=== PATIENT | female | born 1945 | race Caucasian/White ===

== ENCOUNTER → 2021-03-14 09:53 | Outpatient (BNVA) | payer MEDICARE, SELFPAY | PROVIDERS: PCP Internal Medicine; Visit Provider Hospitalist | DX: R06.00 Dyspnea, unspecified (principal); R42 Dizziness and giddiness; R91.8 Other nonspecific abnormal finding of lung field | CPT/HCPCS: 99212 ==

== ENCOUNTER 2021-03-21 07:31 | Outpatient (REF) | payer MEDICARE, SELFPAY ==
--- NOTE | 2021-03-21 17:16 | PFT_ITS ---
INDICATION: COPD. SPIROMETRY: The FEV1 to FVC 78% with an FEV1 of 2.03 L which is 101% predicted and FVC of 2.59 L, which is 97% predicted. No significant response to bronchodilators noted. Maximum voluntary ventilation 105% predicted. LUNG VOLUMES: Total lung capacity 107% predicted with residual volume of 114% predicted. DIFFUSION CAPACITY: DLCO 69% predicted. COMPARISONS: None available. INTERPRETATION: No obstructive nor restrictive ventilatory defects identified. No significant response to bronchodilators noted. Normal maximum voluntary ventilation. Lung volumes are within normal limits and the patient has an isolated diffusion impairment. Clinical correlation warranted. Eddy Burrell MD MR/MODL / [id number]
== END 2021-03-21 07:32 | disposition home or self-care (01) ==
LOC: HO.RESP 07:31
PROVIDERS: PCP Internal Medicine; Visit Provider Hospitalist
DX: R06.00 Dyspnea, unspecified (principal); R42 Dizziness and giddiness
CPT/HCPCS: 94060; 94727; 94729

== ENCOUNTER → 2021-05-02 09:43 | Outpatient (BNVA) | payer MEDICARE, SELFPAY | PROVIDERS: PCP Internal Medicine; Visit Provider Hospitalist | DX: R91.8 Other nonspecific abnormal finding of lung field (principal); R06.00 Dyspnea, unspecified | CPT/HCPCS: 99212 ==

== ENCOUNTER → 2021-10-06 10:43 | Outpatient (BNVA) | payer MEDICARE, SELFPAY | PROVIDERS: PCP Internal Medicine; Visit Provider Hospitalist | DX: R91.8 Other nonspecific abnormal finding of lung field (principal); R06.00 Dyspnea, unspecified; K21.00 Gastro-esophageal reflux disease with esophagitis, without bleeding | CPT/HCPCS: 99212 ==

== ENCOUNTER → 2022-10-06 10:50 | Outpatient (BNVA) | payer MEDICARE, SELFPAY | PROVIDERS: PCP Internal Medicine; Visit Provider Hospitalist | DX: R91.8 Other nonspecific abnormal finding of lung field (principal); R06.00 Dyspnea, unspecified; K21.00 Gastro-esophageal reflux disease with esophagitis, without bleeding | CPT/HCPCS: 99212 ==

== ENCOUNTER 2023-10-07 09:22 | Outpatient (AMB) | payer MEDICARE, SELFPAY ==
[2023-10-07 09:38] VITALS: PULSE 75; O2SAT 100; BMI 17.7
--- NOTE | 2023-10-07 09:38 | A.OFFVIS_ITS ---
Vital Signs 10/07/23 09:38 Height 5 ft 3 in Weight 100 lb BMI 17.7 Pulse 75 Pulse Source Pulse Oximeter Pulse Oximetry (%) 100 Oxygen Delivery Method Room Air Intake Visit Reasons: dyspnea Director Translation Required: No Allergies naproxen [Aleve] Allergy (Severe, Verified 10/07/23 09:39) Skin Stephens Erythromycin Allergy (Severe, Uncoded 10/07/23 09:39) Stomach Upset Sulfa Drugs Allergy (Severe, Uncoded 10/07/23 09:39) Skin Stephens HPI Comments Details: The patient is a 78 year pulmonary known history of pulmonary nodules in addition to episodes of dyspnea on exertion. The last CT scan of the chest demonstrated interval worsening of the pulmonary nodules in the left lower lobe. She had been sick at the time. So therefore the suspicion was it was related to her recent sickness. She did follow up in [place] for 2nd opinion. The recommendation was to repeat the CT scan mid March and she is going to follow up with them early April. She denies any new complaints. Denies any significant coughing. Denies any weight loss or night sweats. She has been otherwise well. 03/14/2021 the patient is here for a pulmonary follow-up visit. Apparently the patient had been in her usual state health until the last couple weeks which she has found to have more symptoms of dyspnea and dizziness. Apparently the 1st time it occurred she was done in [place] while she was walking she all of a sudden felt some lightheadedness in addition to dyspnea. She was walking by herself. Her symptoms were significant enough that she had to seek help and she got arise from a stranger to home. her symptoms were fleeting. She denies any chest tightness or wheezing or coughing when that occurred. The patient did not use any respiratory therapy. Subsequently after that she has gone walking with has been and she has had similar episodes which she has felt that sensation of dyspnea and lightheadedness. she has noticed increased palpitations and extra beats. She does have a follow-up with cardiology. In the meantime the patient has underlying pulmonary nodules and will need follow-up. In addition to that she will need pulmonary function studies. while in the office we did go for a walking oximetry in the patient was able to maintain a pulse ox in the high 90s throughout the ambulation. Her heart rate was in the low 100s. She did have increased ectopy. On my examination she also has an increase pronounced S2. will be very important for her to be seen by Cardiology specially with a history of SVT. 05/02/2021 the patient is here for pulmonary follow-up visit. Overall the patient has been doing better from a respiratory status. She is undergoing additional studies from a cardiac standpoint. We did review her recent CT scan of the chest done at [facility]. I did review the images with her. It appears that the tree in budding has subsided to some degree. However, more pronounced nodular densities are appreciated in the left lower lobe. One of the nodules increase to a cm in size. Still, the picture appears to be more of a smoldering inflammatory process with a history tree-in-bud. She did undergo bronchoscopy previously to assess for smoldering infection. This was done at [facility]. I will request the records and the microbiology from the procedure. At this point the patient usually goes down to [place] for about 3 months and she is scheduled to travel to [place] soon. She was already advised by her production material handler that she does have a production material handler in [place] and also primary care doctor. I did explain to the patient that based on the fact that the nodule has increased in size additional interventions may be required. We did talk about a PET scan. Explained that the PET scan will measure metabolic activity. If indeed this is a infectious inflammatory or smoldering malignant process indeed it will have some degree of FDG activity. We did talk about also considering a biopsy of the prominent nodule which is still 1 cm in size. She does have the Acapella valve that she has not been using regularly. I did encourage her to start using it and that will plan to repeat the CT scan in 3 months time when she gets back f [facility]. In the meantime she will reach out to her doctors in [place]. 10/06/2021 the patient is here for a pulmonary follow-up visit. Overall the patient has been doing well from a respiratory status. Unfortunately she did have a fall and she fractured her pubic ramus. She is having pain but she can walk. She did not require any surgical intervention for this. She also has evidence of osteoporosis and does take medication for that. She did recently have a CT scan of the chest done at [facility] which I reviewed with her and her . It appears to the treating budding the nodular densities primarily in the left lower lobe are pretty stable. She also has some bronchiectatic changes. Appears that the 1 cm nodular densities no longer apparent which is reassuring. What is significant is that she has a dilated esophagus with fluid filled. The patient does have significant reflux symptoms. We did talk about her diet and she is consuming a lot of foods that are contributing to her reflux disease. Therefore she is going to stop drinking is novel in addition to [place] cut down on to september doze in stop eating citrus. She is going to continue with small meals and avoid any food 3 hours before bedtime. She already has a wedge pillow that she uses at nighttime. She was recently placed on omeprazole although she is concerned because her significant osteoporosis. I did recommend that she talk to her primary care doctor GI doctor regarding placing her on Pepcid to try to reduce the PPI. At this point will hold off on any additional imaging studies. The recommendation from [place] was no further CT scans unless she is symptomatic. Will have her come back in a year's time and reassess her symptoms and decide if any additional imaging as warranted. 10/06/2022 the patient is here for a pulmonary follow-up visit. The patient has been doing very well in the last year. She had 1 bout of pneumonia back in the summer of 2021. Subsequently after that she had a CT scan on February 2022 demonstrating no acute disease. She does have some pulmonary nodules that appear to be stable and she has the larger nodule that result. All these are reassuring. The patient is not using any respiratory inhalers at this time. She is continuing with the reflux diet she does take a PPI. Otherwise patient is doing well. Will plan to have her return in a year's time and to follow-up with a repeat CT scan to further follow her pulmonary nodules. 10/07/2023 the patient is here for pulmonary follow-up visit. She has had a very eventful several months. Back in April 2023 she developed severe abdominal discomfort. She was taken to [facility] where she was ultimately diagnosed with ischemic bowel. She had significant amount of bowel resection and now has a colostomy. She was then sent to rehab when she started developing again abdominal discomfort developing likely an obstruction due to her adhesions. She underwent a 2nd surgery for the lysis of adhesions. She now is recovering. She had significant weight loss after her surgeries. She had several difficult months. But now she is gaining strength. She is walking about 3 miles a day. She is slowly gaining weight. Respiratory chapman the patient is doing well. She is monitoring closely for any aspiration events. The patient did have a repeat CT scan of the chest which I personally reviewed along with the patient. Seems like her bronchiolitis treating budding is worse in the left lobe area primarily superior segment. Suspicious for aspiration. Although non tuberculosis mycobacterial disease also in differential. In addition to that now she has a nodule 5 mm that is new in the left upper lobe area which does not quite look like the same process. Therefore will have to continue to monitor closely. She is going to be talking to her surgeon. I do believe if we can start her on a small dose of azithromycin hopefully she can tolerated as she has had adverse symptoms of abdominal discomfort in the past. I do believe that the azithromycin will help treat the bronchiolitis and hopefully as a promotility agent. Although will start with a small dose if is okay by her surgeon in order to treat the underlying respiratory issue. Indeed she understands if she develops any abdominal discomfort she can always stop the medication. She will be following up with her surgeon soon they can also discuss to see if they are agreeable and which point she can start the medicine then get an EKG while on the medicine. [facility] Medical History (Updated 10/07/23 @ 12:54 by Eddy Burrell MD) GERD (gastroesophageal reflux disease) Pulmonary nodules Dyspnea Dizziness Social History (Updated 03/14/21 @ 10:23 by RASHAD Bacon) Patient Tobacco Use Status: Never used Tobacco Review of Systems Const Denies night sweats and Reports weight loss ENT Denies change in voice, Denies lip swelling, Denies mouth pain, Reports nasal congestion, Reports nasal discharge and Denies tongue swelling Card Denies chest pain, Denies lightheadedness and Reports dyspnea on exertion Resp Denies cough and Reports dyspnea on exertion GI Reports as per HPI and Reports abdominal pain Musc Reports as per HPI and Reports myalgias Neuro Denies Neuro-related abnormal movements Psych Denies no additional complaints Chris/Lymph Denies easy bleeding and Denies lymphadenopathy Aller/Immun Denies lip swelling and Denies tongue swelling Physical Exam Vital Signs: Last Vital Signs Pulse 75 10/07/23 09:38 Pulse Ox 100 10/07/23 09:38 Oxygen Delivery Method Room Air 10/07/23 09:38 BMI result Body Mass Index 17.7 Const General: alert Neck Neck: Yes normal visual inspection, Yes full ROM and Yes no lymphadenopathy Chest Chest palpation & inspection: normal inspection of the chest Resp Auscultation: diminished lung sounds Cardio Rate: regular rate Rhythm: regular rhythm Heart sounds: S1 normal heart sound present and Abnormal heart opening sounds loud S2 GI Palpation (GI): Soft to palpation and nontender Auscultation: normal bowel sounds Skin General skin exam: rashes and/or lesions noted Results Reviewed Results Reviewed: [facility] chest at [facility] 08/2023 personally reviewed Assessment & Plan Assessment & Plan (1) Dyspnea: Code(s): R06.00 - Dyspnea, unspecified Category: Medical Qualifiers: Dyspnea type: dyspnea on exertion Qualified Code(s): R06.09 - Other forms of dyspnea (2) Pulmonary nodules: Code(s): R91.8 - Other nonspecific abnormal finding of lung field Category: Medical (3) GERD (gastroesophageal reflux disease): Code(s): K21.9 - Gastro-esophageal reflux disease without esophagitis Category: Medical Qualifiers: Esophagitis bleeding: without hemorrhage Esophagitis presence: with esophagitis Qualified Code(s): K21.00 - Gastro-esophageal reflux disease with esophagitis, without bleeding Plan CT chest in 6 months Continue reflux diet needs to sleep elevated start Azithromycin 125mg MWF->will increase 250mg if she can tolerate it. The Azithromycin will be to treat her bronchiolitis and also will help as a promotility agent. She will F/U with her surgeon to make sure it is ok with her surgical issues. EKG once on the Macrolide follow-up in 6 months f/u CT chest Orders: Orders ECG 12 lead EKG Today J44.9 - Chronic obstructive pulmonary disease, unspecified Medications: New azithromycin Take 1 tablet on Wednesday/Wednesday/Wednesday 125 mg (1/2 x 250 mg) PO 3XW 6 tabs 6RF 28 days K21.9 - Gastro-esophageal reflux disease without esophagitis Coding Level of Care Code Est Pt Level 4 (39234) Diagnoses Dyspnea on exertion R06.09 Dyspnea type: dyspnea on exertion Pulmonary nodules R91.8 Gastroesophageal reflux disease with esophagitis without hemorrhage K21.00 Esophagitis bleeding: without hemorrhage Esophagitis presence: with esophagitis Time Spent (min) 18
== END 2023-10-07 10:07 | disposition home or self-care (01) ==
PROVIDERS: PCP Internal Medicine; Visit Provider Hospitalist
DX: R06.09 Other forms of dyspnea (principal); R91.8 Other nonspecific abnormal finding of lung field; K21.00 Gastro-esophageal reflux disease with esophagitis, without bleeding
CPT/HCPCS: 99214

== ENCOUNTER → 2023-10-07 09:22 | Outpatient (BNVA) | payer MEDICARE, SELFPAY | PROVIDERS: PCP Internal Medicine; Visit Provider Hospitalist | DX: R06.09 Other forms of dyspnea (principal); R91.8 Other nonspecific abnormal finding of lung field; K21.00 Gastro-esophageal reflux disease with esophagitis, without bleeding | CPT/HCPCS: 99212 ==

== ENCOUNTER 2024-02-14 09:44 | Outpatient (REF) | payer MEDICARE, SELFPAY ==
--- NOTE | ~2024-02-14 | XR_ITS ---
EXAMINATION: XR CHEST CLINICAL INFORMATION: Pneumonia. COMPARISON: Most recent chest CT dated 03/13/2022. TECHNIQUE: 2 views of the chest were obtained. FINDINGS: No focal airspace consolidation. No pleural effusion or pneumothorax. Stable cardiomediastinal silhouette. Bilateral axillary surgical clips are noted. XR/XR chest 2V IMPRESSION: No acute cardiopulmonary findings. Electronically signed by: Teodoro Marie MD 02/14/2024 11:54 AM EDT
== END 2024-02-14 09:45 | disposition home or self-care (01) ==
LOC: HO.XRAY 09:44
PROVIDERS: PCP Internal Medicine; Visit Provider Hospitalist
DX: Z01.811 Encounter for preprocedural respiratory examination (principal); J18.9 Pneumonia, unspecified organism; R91.8 Other nonspecific abnormal finding of lung field
CPT/HCPCS: 71046; 99212

== ENCOUNTER 2024-02-14 09:44 | Outpatient (AMB) | payer MEDICARE, SELFPAY ==
[2024-02-14 09:52] VITALS: BP 134/70; PULSE 71; O2SAT 99; BMI 18.0
--- NOTE | 2024-02-14 09:52 | MHC.OFFVIS ---
Vital Signs 02/14/24 09:52 Height 5 ft 3 in Weight 101 lb 6.602 oz BMI 18.0 BP 134/70 Blood Pressure Location Rt brachial Position Sitting Pulse 71 Pulse Source Pulse Oximeter Pulse Oximetry (%) 99 Oxygen Delivery Method Room Air Intake Visit Reasons: follow up pneumonia Pediatrician Required: No Allergies naproxen [Aleve] Allergy (Severe, Verified 02/14/24 09:55) Skin Stephens Erythromycin Allergy (Severe, Uncoded 02/14/24 09:55) Stomach Upset Sulfa Drugs Allergy (Severe, Uncoded 02/14/24 09:55) Skin Stephens HPI Comments Details: The patient is a 78 year pulmonary known history of pulmonary nodules in addition to episodes of dyspnea on exertion. The last CT scan of the chest demonstrated interval worsening of the pulmonary nodules in the left lower lobe. She had been sick at the time. So therefore the suspicion was it was related to her recent sickness. She did follow up in [place] for 2nd opinion. The recommendation was to repeat the CT scan mid March and she is going to follow up with them early April. She denies any new complaints. Denies any significant coughing. Denies any weight loss or night sweats. She has been otherwise well. 03/14/2021 the patient is here for a pulmonary follow-up visit. Apparently the patient had been in her usual state health until the last couple weeks which she has found to have more symptoms of dyspnea and dizziness. Apparently the 1st time it occurred she was done in [place] while she was walking she all of a sudden felt some lightheadedness in addition to dyspnea. She was walking by herself. Her symptoms were significant enough that she had to seek help and she got arise from a stranger to home. her symptoms were fleeting. She denies any chest tightness or wheezing or coughing when that occurred. The patient did not use any respiratory therapy. Subsequently after that she has gone walking with has been and she has had similar episodes which she has felt that sensation of dyspnea and lightheadedness. she has noticed increased palpitations and extra beats. She does have a follow-up with cardiology. In the meantime the patient has underlying pulmonary nodules and will need follow-up. In addition to that she will need pulmonary function studies. while in the office we did go for a walking oximetry in the patient was able to maintain a pulse ox in the high 90s throughout the ambulation. Her heart rate was in the low 100s. She did have increased ectopy. On my examination she also has an increase pronounced S2. will be very important for her to be seen by Cardiology specially with a history of SVT. 05/02/2021 the patient is here for pulmonary follow-up visit. Overall the patient has been doing better from a respiratory status. She is undergoing additional studies from a cardiac standpoint. We did review her recent CT scan of the chest done at [facility]. I did review the images with her. It appears that the tree in budding has subsided to some degree. However, more pronounced nodular densities are appreciated in the left lower lobe. One of the nodules increase to a cm in size. Still, the picture appears to be more of a smoldering inflammatory process with a history tree-in-bud. She did undergo bronchoscopy previously to assess for smoldering infection. This was done at [facility]. I will request the records and the microbiology from the procedure. At this point the patient usually goes down to [place] for about 3 months and she is scheduled to travel to [place] soon. She was already advised by her route sales delivery driver that she does have a route sales delivery driver in [place] and also primary care doctor. I did explain to the patient that based on the fact that the nodule has increased in size additional interventions may be required. We did talk about a PET scan. Explained that the PET scan will measure metabolic activity. If indeed this is a infectious inflammatory or smoldering malignant process indeed it will have some degree of FDG activity. We did talk about also considering a biopsy of the prominent nodule which is still 1 cm in size. She does have the Acapella valve that she has not been using regularly. I did encourage her to start using it and that will plan to repeat the CT scan in 3 months time when she gets back from [place]. In the meantime she will reach out to her doctors in [place]. 10/06/2021 the patient is here for a pulmonary follow-up visit. Overall the patient has been doing well from a respiratory status. Unfortunately she did have a fall and she fractured her pubic ramus. She is having pain but she can walk. She did not require any surgical intervention for this. She also has evidence of osteoporosis and does take medication for that. She did recently have a CT scan of the chest done at [facility] which I reviewed with her and her . It appears to the treating budding the nodular densities primarily in the left lower lobe are pretty stable. She also has some bronchiectatic changes. Appears that the 1 cm nodular densities no longer apparent which is reassuring. What is significant is that she has a dilated esophagus with fluid filled. The patient does have significant reflux symptoms. We did talk about her diet and she is consuming a lot of foods that are contributing to her reflux disease. Therefore she is going to stop drinking is novel in addition to [place] cut down on to september doze in stop eating citrus. She is going to continue with small meals and avoid any food 3 hours before bedtime. She already has a wedge pillow that she uses at nighttime. She was recently placed on omeprazole although she is concerned because her significant osteoporosis. I did recommend that she talk to her primary care doctor GI doctor regarding placing her on Pepcid to try to reduce the PPI. At this point will hold off on any additional imaging studies. The recommendation from [place] was no further CT scans unless she is symptomatic. Will have her come back in a year's time and reassess her symptoms and decide if any additional imaging as warranted. 10/06/2022 the patient is here for a pulmonary follow-up visit. The patient has been doing very well in the last year. She had 1 bout of pneumonia back in the summer of 2021. Subsequently after that she had a CT scan on February 2022 demonstrating no acute disease. She does have some pulmonary nodules that appear to be stable and she has the larger nodule that result. All these are reassuring. The patient is not using any respiratory inhalers at this time. She is continuing with the reflux diet she does take a PPI. Otherwise patient is doing well. Will plan to have her return in a year's time and to follow-up with a repeat CT scan to further follow her pulmonary nodules. 10/07/2023 the patient is here for pulmonary follow-up visit. She has had a very eventful several months. Back in April 2023 she developed severe abdominal discomfort. She was taken to [facility] where she was ultimately diagnosed with ischemic bowel. She had significant amount of bowel resection and now has a colostomy. She was then sent to rehab when she started developing again abdominal discomfort developing likely an obstruction due to her adhesions. She underwent a 2nd surgery for the lysis of adhesions. She now is recovering. She had significant weight loss after her surgeries. She had several difficult months. But now she is gaining strength. She is walking about 3 miles a day. She is slowly gaining weight. Respiratory chapman the patient is doing well. She is monitoring closely for any aspiration events. The patient did have a repeat CT scan of the chest which I personally reviewed along with the patient. Seems like her bronchiolitis treating budding is worse in the left lobe area primarily superior segment. Suspicious for aspiration. Although non tuberculosis mycobacterial disease also in differential. In addition to that now she has a nodule 5 mm that is new in the left upper lobe area which does not quite look like the same process. Therefore will have to continue to monitor closely. She is going to be talking to her surgeon. I do believe if we can start her on a small dose of azithromycin hopefully she can tolerated as she has had adverse symptoms of abdominal discomfort in the past. I do believe that the azithromycin will help treat the bronchiolitis and hopefully as a promotility agent. Although will start with a small dose if is okay by her surgeon in order to treat the underlying respiratory issue. Indeed she understands if she develops any abdominal discomfort she can always stop the medication. She will be following up with her surgeon soon they can also discuss to see if they are agreeable and which point she can start the medicine then get an EKG while on the medicine. 02/14/2024 the patient is here for a preop evaluation. The patient apparently was in her usual state health while in [facility] when she developed acute onset pleuritic left-sided chest pain. She went to the ER. There she had blood work done including a D-dimer that was elevated. Therefore she did undergo a CT scan of the chest PE protocol. No evidence of any blood clots which is reassuring. Although it appeared that she did have a pneumonia involving the lingula and likely corresponding to some degree of pleuritis. Appeared to be atypical since she was not bringing up any significant mucus production. May have been an atypical organism shares a mycoplasma versus a viral syndrome. The patient did recover quickly. Now she has completed her antibiotics and now she is back on the azithromycin. She takes azithromycin 3 times a week to treat her bronchiolitis and also bronchiectatic changes. The plan for her would be to continue the azithromycin until she undergo surgery and afterwards when she follows up we can discontinue the therapy if she is doing well. It is reassuring that her pulmonary nodules are stable and her small sided left pleural effusion is also stable on her CTA that she had that was compared to a neck CT scan that she had [place] [facility] The patient did undergo a chest x-ray today. I did provide the images. Seems like that areas improved. Good aeration of the lungs. No evidence of any pleural effusions that I could appreciate based on the x-ray. [facility], [facility] Medical History (Updated 02/14/24 @ 20:33 by Eddy Burrell MD) GERD (gastroesophageal reflux disease) Pulmonary nodules Dyspnea Dizziness Social History (Updated 03/14/21 @ 10:23 by RASHAD Bacon) Patient Tobacco Use Status: Never used Tobacco Review of Systems Const Denies night sweats and Reports weight loss ENT Denies change in voice, Denies lip swelling, Denies mouth pain, Reports nasal congestion, Reports nasal discharge and Denies tongue swelling Card Denies chest pain and Denies lightheadedness Resp Denies cough GI Reports as per HPI Musc Reports as per HPI and Reports myalgias Neuro Denies Neuro-related abnormal movements Psych Denies no additional complaints Chris/Lymph Denies easy bleeding and Denies lymphadenopathy Aller/Immun Denies lip swelling and Denies tongue swelling Physical Exam Vital Signs: Last Vital Signs Pulse 71 02/14/24 09:52 BP 134/70 02/14/24 09:52 Pulse Ox 99 02/14/24 09:52 Oxygen Delivery Method Room Air 02/14/24 09:52 BMI result Body Mass Index 18.0 Const General: alert Neck Neck: Yes normal visual inspection, Yes full ROM and Yes no lymphadenopathy Chest Chest palpation & inspection: normal inspection of the chest Resp Auscultation: diminished lung sounds Cardio Rate: regular rate Rhythm: regular rhythm Heart sounds: S1 normal heart sound present and Abnormal heart opening sounds loud S2 GI Palpation (GI): Soft to palpation and nontender Auscultation: normal bowel sounds Skin General skin exam: rashes and/or lesions noted Results Reviewed Results Reviewed: Personally reviewed CXR with post operative changes. Minimal haziness in the infrahilar area, but no significant evidence of airspace disease. Assessment & Plan Assessment & Plan (1) Pre-op chest exam: Code(s): Z01.811 - Encounter for preprocedural respiratory examination Category: Medical (2) Dyspnea: Code(s): R06.00 - Dyspnea, unspecified Category: Medical Qualifiers: Dyspnea type: dyspnea on exertion Qualified Code(s): R06.09 - Other forms of dyspnea (3) Pulmonary nodules: Code(s): R91.8 - Other nonspecific abnormal finding of lung field Category: Medical (4) GERD (gastroesophageal reflux disease): Code(s): K21.9 - Gastro-esophageal reflux disease without esophagitis Category: Medical Qualifiers: Esophagitis bleeding: without hemorrhage Esophagitis presence: with esophagitis Qualified Code(s): K21.00 - Gastro-esophageal reflux disease with esophagitis, without bleeding (5) Pneumonia: Comment: resolved Code(s): J18.9 - Pneumonia, unspecified organism Category: Medical Qualifiers: Pneumonia type: due to unspecified organism Laterality: left Lung location: upper lobe of lung Qualified Code(s): J18.9 - Pneumonia, unspecified organism Plan The patient is currently doing well. Although recently had a bout of pneumonia clinically she is at baseline. Her chest x-ray demonstrates no further evidence of significant airspace disease. Lung expansion is normal. The patient does have mild risk for perioperative pulmonary complications which include; atelectasis, hypoxia, pneumonia. At this point the patient is clinically stable and is medically optimized. from a pulmonary standpoint, the patient is able to proceed with anesthesia and surgery. No limitations at this time. 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 EKG once on the Macrolide Follow-up in 6 months f/u CT chest Orders: Orders XR chest 2V Today J18.9 - Pneumonia, unspecified organism Coding Level of Care Code Est Pt Level 5 (53758) Diagnoses Pre-op chest exam Z01.811 Dyspnea on exertion R06.09 Dyspnea type: dyspnea on exertion Pulmonary nodules R91.8 Gastroesophageal reflux disease with esophagitis without hemorrhage K21.00 Esophagitis bleeding: without hemorrhage Esophagitis presence: with esophagitis Pneumonia of left upper lobe due to infectious organism J18.9 Pneumonia type: due to unspecified organism Laterality: left Lung location: upper lobe of lung Time Spent (min) 35
== END 2024-02-14 10:17 | disposition home or self-care (01) ==
PROVIDERS: PCP Internal Medicine; Visit Provider Hospitalist
DX: Z01.811 Encounter for preprocedural respiratory examination (principal); R06.09 Other forms of dyspnea; R91.8 Other nonspecific abnormal finding of lung field; K21.00 Gastro-esophageal reflux disease with esophagitis, without bleeding; J18.9 Pneumonia, unspecified organism
CPT/HCPCS: 99214

== ENCOUNTER 2024-06-01 10:43 | Outpatient (AMB) | payer MEDICARE, SELFPAY ==
[2024-06-01 10:47] VITALS: BP 104/62; PULSE 72; O2SAT 98; BMI 17.8
--- NOTE | 2024-06-01 10:47 | MHC.OFFVIS ---
Vital Signs 06/01/24 10:47 Height 5 ft 3 in Weight 100 lb 4.965 oz BMI 17.8 BP 104/62 Blood Pressure Location Rt brachial Position Sitting Pulse 72 Pulse Source Pulse Oximeter Pulse Oximetry (%) 98 Oxygen Delivery Method Room Air Intake Visit Reasons: dyspnea Allergies naproxen [Aleve] Allergy (Severe, Verified 02/14/24 09:55) Skin Stephens heparin (porcine) Allergy (Mild, Verified 06/01/24 10:52) Swelling Erythromycin Allergy (Severe, Uncoded 02/14/24 09:55) Stomach Upset Sulfa Drugs Allergy (Severe, Uncoded 02/14/24 09:55) Skin Stephens HPI Comments Details: The patient is a 79 year pulmonary known history of pulmonary nodules in addition to episodes of dyspnea on exertion. The last CT scan of the chest demonstrated interval worsening of the pulmonary nodules in the left lower lobe. She had been sick at the time. So therefore the suspicion was it was related to her recent sickness. She did follow up in [place] for 2nd opinion. The recommendation was to repeat the CT scan mid March and she is going to follow up with them early April. She denies any new complaints. Denies any significant coughing. Denies any weight loss or night sweats. She has been otherwise well. 03/14/2021 the patient is here for a pulmonary follow-up visit. Apparently the patient had been in her usual state health until the last couple weeks which she has found to have more symptoms of dyspnea and dizziness. Apparently the 1st time it occurred she was done in [place] while she was walking she all of a sudden felt some lightheadedness in addition to dyspnea. She was walking by herself. Her symptoms were significant enough that she had to seek help and she got arise from a stranger to home. her symptoms were fleeting. She denies any chest tightness or wheezing or coughing when that occurred. The patient did not use any respiratory therapy. Subsequently after that she has gone walking with has been and she has had similar episodes which she has felt that sensation of dyspnea and lightheadedness. she has noticed increased palpitations and extra beats. She does have a follow-up with cardiology. In the meantime the patient has underlying pulmonary nodules and will need follow-up. In addition to that she will need pulmonary function studies. while in the office we did go for a walking oximetry in the patient was able to maintain a pulse ox in the high 90s throughout the ambulation. Her heart rate was in the low 100s. She did have increased ectopy. On my examination she also has an increase pronounced S2. will be very important for her to be seen by Cardiology specially with a history of SVT. 05/02/2021 the patient is here for pulmonary follow-up visit. Overall the patient has been doing better from a respiratory status. She is undergoing additional studies from a cardiac standpoint. We did review her recent CT scan of the chest done at [facility]. I did review the images with her. It appears that the tree in budding has subsided to some degree. However, more pronounced nodular densities are appreciated in the left lower lobe. One of the nodules increase to a cm in size. Still, the picture appears to be more of a smoldering inflammatory process with a history tree-in-bud. She did undergo bronchoscopy previously to assess for smoldering infection. This was done at [facility]. I will request the records and the microbiology from the procedure. At this point the patient usually goes down to [place] for about 3 months and she is scheduled to travel to [place] soon. She was already advised by her digital advertising specialist that she does have a digital advertising specialist in [place] and also primary care doctor. I did explain to the patient that based on the fact that the nodule has increased in size additional interventions may be required. We did talk about a PET scan. Explained that the PET scan will measure metabolic activity. If indeed this is a infectious inflammatory or smoldering malignant process indeed it will have some degree of FDG activity. We did talk about also considering a biopsy of the prominent nodule which is still 1 cm in size. She does have the Acapella valve that she has not been using regularly. I did encourage her to start using it and that will plan to repeat the CT scan in 3 months time when she gets back from [place]. In the meantime she will reach out to her doctors in [place]. 10/06/2021 the patient is here for a pulmonary follow-up visit. Overall the patient has been doing well from a respiratory status. Unfortunately she did have a fall and she fractured her pubic ramus. She is having pain but she can walk. She did not require any surgical intervention for this. She also has evidence of osteoporosis and does take medication for that. She did recently have a CT scan of the chest done at [facility] which I reviewed with her and her . It appears to the treating budding the nodular densities primarily in the left lower lobe are pretty stable. She also has some bronchiectatic changes. Appears that the 1 cm nodular densities no longer apparent which is reassuring. What is significant is that she has a dilated esophagus with fluid filled. The patient does have significant reflux symptoms. We did talk about her diet and she is consuming a lot of foods that are contributing to her reflux disease. Therefore she is going to stop drinking is novel in addition to [place] cut down on to september doze in stop eating citrus. She is going to continue with small meals and avoid any food 3 hours before bedtime. She already has a wedge pillow that she uses at nighttime. She was recently placed on omeprazole although she is concerned because her significant osteoporosis. I did recommend that she talk to her primary care doctor GI doctor regarding placing her on Pepcid to try to reduce the PPI. At this point will hold off on any additional imaging studies. The recommendation from [place] was no further CT scans unless she is symptomatic. Will have her come back in a year's time and reassess her symptoms and decide if any additional imaging as warranted. 10/06/2022 the patient is here for a pulmonary follow-up visit. The patient has been doing very well in the last year. She had 1 bout of pneumonia back in the summer of 2021. Subsequently after that she had a CT scan on February 2022 demonstrating no acute disease. She does have some pulmonary nodules that appear to be stable and she has the larger nodule that result. All these are reassuring. The patient is not using any respiratory inhalers at this time. She is continuing with the reflux diet she does take a PPI. Otherwise patient is doing well. Will plan to have her return in a year's time and to follow-up with a repeat CT scan to further follow her pulmonary nodules. 10/07/2023 the patient is here for pulmonary follow-up visit. She has had a very eventful several months. Back in April 2023 she developed severe abdominal discomfort. She was taken to [facility] where she was ultimately diagnosed with ischemic bowel. She had significant amount of bowel resection and now has a colostomy. She was then sent to rehab when she started developing again abdominal discomfort developing likely an obstruction due to her adhesions. She underwent a 2nd surgery for the lysis of adhesions. She now is recovering. She had significant weight loss after her surgeries. She had several difficult months. But now she is gaining strength. She is walking about 3 miles a day. She is slowly gaining weight. Respiratory chapman the patient is doing well. She is monitoring closely for any aspiration events. The patient did have a repeat CT scan of the chest which I personally reviewed along with the patient. Seems like her bronchiolitis treating budding is worse in the left lobe area primarily superior segment. Suspicious for aspiration. Although non tuberculosis mycobacterial disease also in differential. In addition to that now she has a nodule 5 mm that is new in the left upper lobe area which does not quite look like the same process. Therefore will have to continue to monitor closely. She is going to be talking to her surgeon. I do believe if we can start her on a small dose of azithromycin hopefully she can tolerated as she has had adverse symptoms of abdominal discomfort in the past. I do believe that the azithromycin will help treat the bronchiolitis and hopefully as a promotility agent. Although will start with a small dose if is okay by her surgeon in order to treat the underlying respiratory issue. Indeed she understands if she develops any abdominal discomfort she can always stop the medication. She will be following up with her surgeon soon they can also discuss to see if they are agreeable and which point she can start the medicine then get an EKG while on the medicine. 02/14/2024 the patient is here for a preop evaluation. The patient apparently was in her usual state health while in [facility] when she developed acute onset pleuritic left-sided chest pain. She went to the ER. There she had blood work done including a D-dimer that was elevated. Therefore she did undergo a CT scan of the chest PE protocol. No evidence of any blood clots which is reassuring. Although it appeared that she did have a pneumonia involving the lingula and likely corresponding to some degree of pleuritis. Appeared to be atypical since she was not bringing up any significant mucus production. May have been an atypical organism shares a mycoplasma versus a viral syndrome. The patient did recover quickly. Now she has completed her antibiotics and now she is back on the azithromycin. She takes azithromycin 3 times a week to treat her bronchiolitis and also bronchiectatic changes. The plan for her would be to continue the azithromycin until she undergo surgery and afterwards when she follows up we can discontinue the therapy if she is doing well. It is reassuring that her pulmonary nodules are stable and her small sided left pleural effusion is also stable on her CTA that she had that was compared to a neck CT scan that she had previously at [facility]. The patient did undergo a chest x-ray today. I did provide the images. Seems like that areas improved. Good aeration of the lungs. No evidence of any pleural effusions that I could appreciate based on the x-ray. 06/01/2024 the patient is here for a pulmonary follow-up visit. She had a very eventful few months. She went to [place] to get reversal from her stoma however get complicated by infection. She had to have multiple exploratory surgeries. Now healing secondary intention. She did require prolonged hospitalization and subsequently rehab. She is finally feeling better. Then when she got home she ended up with COVID. She did well with COVID she did not take any antiviral therapy although after she did get a cough. The cough is productive at times. Moderate severity. Seems like his lingering not getting any better. She has been on the azithromycin 125 mg Wednesday. Unfortunately she was also diagnosed with atrial fibrillation while in [place] and she was started on amiodarone. I explained to her the seriousness of taking macrolide therapy with potential QT prolongation. She will stop it immediately. She understands the amiodarone also has potential side effects. The lowest most effective dose will be ruby. Will start him some doxycycline to treat her for postviral bacterial infection and she is going to make her way back to [place] for few months. In the meantime if she is not getting any better with the doxycycline she will get an x-ray at [facility]. [facility] Medical History (Updated 02/14/24 @ 20:33 by Eddy Burrell MD) GERD (gastroesophageal reflux disease) Pulmonary nodules Dyspnea Dizziness Social History Patient Tobacco Use Status: Never used Tobacco Review of Systems Const Denies night sweats and Reports weight loss ENT Denies change in voice, Denies lip swelling, Denies mouth pain, Reports nasal congestion, Reports nasal discharge and Denies tongue swelling Card Denies chest pain and Denies lightheadedness Resp Reports chest congestion and Reports cough GI Reports as per HPI Musc Reports as per HPI and Reports myalgias Neuro Denies Neuro-related abnormal movements Psych Denies no additional complaints Chris/Lymph Denies easy bleeding and Denies lymphadenopathy Aller/Immun Denies lip swelling and Denies tongue swelling Physical Exam Vital Signs: Last Vital Signs Pulse 72 06/01/24 10:47 BP 104/62 06/01/24 10:47 Pulse Ox 98 06/01/24 10:47 Oxygen Delivery Method Room Air 06/01/24 10:47 BMI result Body Mass Index 17.8 Const General: alert Neck Neck: Yes normal visual inspection, Yes full ROM and Yes no lymphadenopathy Chest Chest palpation & inspection: normal inspection of the chest Resp Auscultation: diminished lung sounds Cardio Rate: regular rate Rhythm: regular rhythm Heart sounds: S1 normal heart sound present and Abnormal heart opening sounds loud S2 GI Palpation (GI): Soft to palpation and nontender Auscultation: normal bowel sounds Skin General skin exam: rashes and/or lesions noted Assessment & Plan Assessment & Plan (1) Dyspnea: Code(s): R06.00 - Dyspnea, unspecified Category: Medical Qualifiers: Dyspnea type: dyspnea on exertion Qualified Code(s): R06.09 - Other forms of dyspnea (2) Pulmonary nodules: Code(s): R91.8 - Other nonspecific abnormal finding of lung field Category: Medical (3) GERD (gastroesophageal reflux disease): Code(s): K21.9 - Gastro-esophageal reflux disease without esophagitis Category: Medical Qualifiers: Esophagitis bleeding: without hemorrhage Esophagitis presence: with esophagitis Qualified Code(s): K21.00 - Gastro-esophageal reflux disease with esophagitis, without bleeding Plan Continue reflux diet needs to sleep elevated stop Azithromycin start Doxycycline Mucinex ok to use CXR Follow-up in 6 months Orders: Orders XR chest 2V Today J18.9 - Pneumonia, unspecified organism Medications: New doxycycline monohydrate 100 mg PO BID 28 tabs 0RF 14 days Coding Level of Care Code Est Pt Level 4 (90244) Complex EM visit Add On G2211 Diagnoses Dyspnea on exertion R06.09 Dyspnea type: dyspnea on exertion Pulmonary nodules R91.8 Gastroesophageal reflux disease with esophagitis without hemorrhage K21.00 Esophagitis bleeding: without hemorrhage Esophagitis presence: with esophagitis Time Spent (min) 17
--- OUTSIDE RECORDS SUMMARY | 2024-06-01 11:17 | XMS_ITS ---
Author Name [facility] Unknown History of Medication Use Medication Directions Dispensed Refills Start Date End Date Stat us metoprolol (LOPRESSOR) 25 MG tablet Take 12.5 mg by mouth 04/20/2024 05/30/9999 active ipratropium (ATROVENT) 21 mcg (0.03 %) nasal spray Instill 2 sprays into each nostril every 12 (twelve) hours 04/20/2024 05/30/9999 active Lactobac 66-Bifido 4-S.thermo (Advanced Probiotic-14) 3 billion cell cap Probiotic 04/20/2024 05/30/9999 active diltiazem (TIAZAC) 120 MG 24 hr capsule Take 120 mg by mouth daily. 04/20/2024 05/30/9999 active levothyroxine (SYNTHROID) 75 MCG tablet Take 88 mcg by mouth daily. 04/20/2024 05/30/9999 active irbesartan (AVAPRO) 150 MG tablet Take by mouth nightly. 04/20/2024 05/30/9999 active omeprazole (PriLOSEC) 20 MG capsule Take 20 mg by mouth daily. 04/20/2024 05/30/9999 active clipgumjjt-bbqugdx-de ffeine (FIORINAL) 50-325-40 mg capsule butalbital-aspiri n-caffeine 50 mg-325 mg-40 mg capsule TAKE 1 TO 2 TABLETS BY MOUTH EVERY 4 HOURS NEEDED 04/20/2024 05/30/9999 active Problems Problem Status Onset Date Problem Type Date of Resolution Source Sore throat active EncounterDiagnosisAct CT_CVSMCCT Lab test positive for detection of COVID-19 virus active EncounterDiagnosisAct CT_C VSMCCT
== END 2024-06-01 11:20 | disposition home or self-care (01) ==
PROVIDERS: PCP Internal Medicine; Visit Provider Hospitalist
DX: R06.09 Other forms of dyspnea (principal); R91.8 Other nonspecific abnormal finding of lung field; K21.00 Gastro-esophageal reflux disease with esophagitis, without bleeding
CPT/HCPCS: 99214; G2211

== ENCOUNTER → 2024-06-01 10:43 | Outpatient (BNVA) | payer MEDICARE, SELFPAY | PROVIDERS: PCP Internal Medicine; Visit Provider Hospitalist | DX: R06.09 Other forms of dyspnea (principal); R91.8 Other nonspecific abnormal finding of lung field; K21.00 Gastro-esophageal reflux disease with esophagitis, without bleeding | CPT/HCPCS: 99212 ==

== ENCOUNTER 2024-11-17 12:12 | Outpatient (AMB) | payer MEDICARE, SELFPAY ==
--- OUTSIDE RECORDS SUMMARY | 2024-07-07 10:00 | XMS_ITS ---
Author Organization [facility] Address [address] [place] [address] Care Team Providers Care Tractor Trailer Technician Name Role Phone Prudence Meredith MD Primary Care Provider REASON FOR VISIT *Spirometry by RT Vendor Encounters Encounter Location Date Provider Diagnosis [address] [place] [address] 07/07/2024 Prudence Meredith Plan Of Treatment No Information Progress Notes * ANDREI BARNESB:1944 (79 yo F)Acc No.[id number]:07/07/2024 Patient: RAQUEL BALTAZAR Provider: Sheila MEREDITH M.D. :1945 A ge:79 Y S ex:Female Date:07/07/2024 Address:[address] [place] [address], [address], [id number] Structured Data:General cons ent obtained : Written; Date obtained: : 06/26/2022 Subjective: * Chief Complaints: * 1 . *Spirometry by RT Vendor. * Medical History: Objective: * Vitals: Assessment: Plan: * Treatment: * * Electronic signature of Prudence Meredith MD, MD on 11/17/2024 at 12:15 PM EDT Sign off status: Pending * Provider: Sheila MEREDITH M.D. Date: 0 07/07/2024 Generated for Chalo gallegos/Liliya/eTransmitting on: 0 11/17/2024 12:15 PM EDT
[2024-11-17 12:49] VITALS: BP 116/56; PULSE 63; O2SAT 93; BMI 18.0
--- NOTE | 2024-11-17 12:49 | A.OFFVIS_ITS ---
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 The last CT scan of the chest demonstrated interval worsening of the pulmonary nodules in the left lower lobe. She had been sick at the time. So therefore the suspicion was it was related to her recent sickness. She did follow up in [place] for 2nd opinion. The recommendation was to repeat the CT scan mid March and she is going to follow up with them early April. She denies any new complaints. Denies any significant coughing. Denies any weight loss or night sweats. She has been otherwise well. 03/14/2021 the patient is here for a pulmonary follow-up visit. Apparently the patient had been in her usual state health until the last couple weeks which she has found to have more symptoms of dyspnea and dizziness. Apparently the 1st time it occurred she was done in [place] while she was walking she all of a sudden felt some lightheadedness in addition to dyspnea. She was walking by herself. Her symptoms were significant enough that she had to seek help and she got arise from a stranger to home. her symptoms were fleeting. She denies any chest tightness or wheezing or coughing when that occurred. The patient did not use any respiratory therapy. Subsequently after that she has gone walking with has been and she has had similar episodes which she has felt that sensation of dyspnea and lightheadedness. she has noticed increased palpitations and extra beats. She does have a follow-up with cardiology. In the meantime the patient has underlying pulmonary nodules and will need follow-up. In addition to that she will need pulmonary function studies. while in the office we did go for a walking oximetry in the patient was able to maintain a pulse ox in the high 90s throughout the ambulation. Her heart rate was in the low 100s. She did have increased ectopy. On my examination she also has an increase pronounced S2. will be very important for her to be seen by Cardiology specially with a history of SVT. 05/02/2021 the patient is here for pulmonary follow-up visit. Overall the patient has been doing better from a respiratory status. She is undergoing additional studies from a cardiac standpoint. We did review her recent CT scan of the chest done at [facility]. I did review the images with her. It appears that the tree in budding has subsided to some degree. However, more pronounced nodular densities are appreciated in the left lower lobe. One of the nodules increase to a cm in size. Still, the picture appears to be more of a smoldering inflammatory process with a history tree-in-bud. She did undergo bronchoscopy previously to assess for smoldering infection. This was done at [facility]. I will request the records and the microbiology from the procedure. At this point the patient usually goes down to [place] for about 3 months and she is scheduled to travel to [place] soon. She was already advised by her lamp inspector that she does have a lamp inspector in [place] and also primary care doctor. I did explain to the patient that based on the fact that the nodule has increased in size additional interventions may be required. We did talk about a PET scan. Explained that the PET scan will measure metabolic activity. If indeed this is a infectious inflammatory or smoldering malignant process indeed it will have some degree of FDG activity. We did talk about also considering a biopsy of the prominent nodule which is still 1 cm in size. She does have the Acapella valve that she has not been using regularly. I did encourage her to start using it and that will plan to repeat the CT scan in 3 months time when she gets back from [place]. In the meantime she will reach out to her doctors in [place]. 10/06/2021 the patient is here for a pulmonary follow-up visit. Overall the patient has been doing well from a respiratory status. Unfortunately she did have a fall and she fractured her pubic ramus. She is having pain but she can w alk. She did not require any surgical intervention for this. She also has evidence of osteoporosis and does take medication for that. She did recently have a CT scan of the chest done at [facility] which I reviewed with her and her . It appears to the treating budding the nodular densities primarily in the left lower lobe are pretty stable. She also has some bronchiectatic changes. Appears that the 1 cm nodular densities no longer apparent which is reassuring. What is significant is that she has a dilated esophagus with fluid filled. The patient does have significant reflux symptoms. We did talk about her diet and she is consuming a lot of foods that are contributing to her reflux disease. Therefore she is going to stop drinking is novel in addition to [place] cut down on to september doze in stop eating citrus. She is going to continue with small meals and avoid any food 3 hours before bedtime. She already has a wedge pillow that she uses at nighttime. She was recently placed on omeprazole although she is concerned because her significant osteoporosis. I did recommend that she talk to her primary care doctor GI doctor regarding placing her on Pepcid to try to reduce the PPI. At this point will hold off on any additional imaging studies. The recommendation from [place] was no further CT scans unless she is symptomatic. Will have her come back in a year's time and reassess her symptoms and decide if any additional imaging as warranted. 10/06/2022 the patient is here for a pulmonary follow-up visit. The patient has been doing very well in the last year. She had 1 bout of pneumonia back in the summer of 2021. Subsequently after that she had a CT scan on February 2022 demonstrating no acute disease. She does have some pulmonary nodules that reilly ear to be stable and she has the larger nodule that result. All these are reassuring. The patient is not using any respiratory inhalers at this time. She is continuing with the reflux diet she does take a PPI. Otherwise patient is doing well. Will plan to have her return in a year's time and to follow-up with a repeat CT scan to further follow her pulmonary nodules. 10/07/2023 the patient is here for pulmonary follow-up visit. She has had a very eventful several months. Back in April 2023 she developed severe abdominal discomfort. She was taken to [facility] where she was ultimately diagnosed with ischemic bowel. She had significant amount of bowel resection and now has a colostomy. She was then sent to rehab when she started developing again abdominal discomfort developing likely an obstruction due to her adhesions. She underwent a 2nd surgery for the lysis of adhesions. She now is recovering. She had significant weight loss after her surgeries. She had several difficult months. But now she is gaining strength. She is walking about 3 miles a day. She is slowly gaining weight. Respiratory chapman the patient is doing well. She is monitoring closely for any aspiration events. The patient did have a repeat CT scan of the chest which I personally reviewed along with the patient. Seems like her bronchiolitis treating budding is worse in the left lobe area primarily superior segment. Suspicious for aspiration. Although non tuberculosis mycobacterial disease also in differential. In addition to that now she has a nodule 5 mm that is new in the left upper lobe area which does not quite look like the same process. Therefore will have to continue to monitor closely. She is going to be talking to her surgeon. I do believe if we can start her on a small dose of azithromycin hopefully she can tolerated as she has had adverse symptoms of abdominal discomfort in the past. I do believe that the azithromycin will help treat the bronchiolitis and hopefully as a promotility agent. Although will start with a small dose if is okay by her surgeon in order to treat the underlying respiratory issue. Indeed she understands if she develops any abdominal discomfort she can always stop the medication. She will be following up with her surgeon soon they can also discuss to see if they are agreeable and which point she can start the medicine then get an EKG while on the medicine. 02/14/2024 the patient is here for a preop evaluation. The patient apparently was in her usual state health while in [facility] when she developed acute onset pleuritic left-sided chest pain. She went to the ER. There she had blood work done including a D-dimer that was elevated. Therefore she did undergo a CT scan of the chest PE protocol. No evidence of any blood clots which is reassuring. Although it appeared that she did have a pneumonia involving the lingula and likely corresponding to some degree of pleuritis. Appeared to be atypical since she was not bringing up any significant mucus production. May have been an atypical organism shares a mycoplasma versus a viral syndrome. The patient did recover quickly. Now she has completed her antibiotics and now she is back on the azithromycin. She takes azithromycin 3 times a week to treat her bronchiolitis and also bronchiectatic changes. The plan for her would be to continue the azithromycin until she undergo surgery and afterwards when she follows up we can discontinue the therapy if she is doing well. It is reassuring that her pulmonary nodules are stable and her small estephania ed left pleural effusion is also stable on her CTA that she had that was compared to a neck CT scan that she had previously at [facility]. The patient did undergo a chest x-ray today. I did provide the images. Seems like that areas improved. Good aeration of the lungs. No evidence of any pleural effusions that I could appreciate based on the x-ray. 06/01/2024 the patient is here for a pulmonary follow-up visit. She had a very eventful few months. She went to [place] to get reversal from her stoma however get complicated by infection. She had to have multiple exploratory surgeries. Now healing secondary intention. She did require prolonged hospitalization and subsequently rehab. She is finally feeling better. Then when she got home she ended up with COVID. She did well with COVID she did not take any antiviral therapy although after she did get a cough. The cough is productive at times. Moderate severity. Seems like his lingering not getting any better. She has been on the azithromycin 125 mg Wednesday. Unfortunately she was also diagnosed with atrial fibrillation while in [place] and she was started on amiodarone. I explained to her the seriousness of taking macrolide therapy with potential QT prolongation. She will stop it immediately. She understands the amiodarone also has potential side effects. The lowest most effective dose will be ruby. Will start him some doxycycline to treat her for postviral bacterial infection and she is going to make her way back to [place] for few months. In the meantime if she is not getting any better with the doxycycline she will get an x-ray at [facility]. 11/17/2024 the patient is here for pulmonary follow-up visit. Overall she is doing well. She has healed well from her previous infections and wound issues. The patient has been breathing a lot better. When she was in [place] though she develop respiratory symptoms since she did have an x-ray started antibiotics. She recently had an x-ray. I personally reviewed the x-ray from October 2024 and also compared to the x-ray from January 2024. No significant changes no evidence of any active airspace disease which is reassuring. The patient did have PFTs done specially because she was placed on amiodarone. PFTs were reassuring although she had a partial obstruction and also had hyperinflation of the lungs which is new. In addition to that she had a slight decrease in the diffusing capacity. She was diagnosed with anemia which may be playing a role. In the meantime will go ahead and start her on Incruse to try to improve her obstructive physiology. Therefore will go ahead and start her on Incruse. I did teach her how to use the inhaler. She will try for a month and see if this is effective for. She continues on the amiodarone. She understands the side effects from the medications but at this point I do not see any evidence of any pulmonary manifestations of amiodarone. Explained to her that this is a dose dependent medication and she is taking a very small dose which is the lowest most effective dose for her which is very effective. Follow-up sometime in 5-6 months prior to her leaving to [place]. If she has any issues prior to this she will call for an earlier assessment. [facility] Medical History (Updated 02/14/24 @ 20:33 by Eddy Burrell MD) GERD (gastroesophageal reflux disease) Pulmonary nodules Dyspnea Dizziness Social History Patient Tobacco Use Status: Never used Tobacco Review of Systems Const Denies night sweats and Reports weight loss ENT Denies change in voice, Denies lip swelling, Denies mouth pain, Reports nasal congestion, Reports nasal discharge and Denies tongue swelling Card Denies chest pain and Denies lightheadedness Resp Reports chest congestion and Reports cough GI Reports as per HPI Musc Reports as per HPI and Reports myalgias Neuro Denies Neuro-related abnormal movements Psych Denies no additional complaints Chris/Lymph Denies easy bleeding and Denies lymphadenopathy Aller/Immun Denies lip swelling and Denies tongue swelling Physical Exam Vital Signs: Last Vital Signs Pulse 63 11/17/24 12:49 BP 116/56 L 11/17/24 12:49 Pulse Ox 93 11/17/24 12:49 Oxygen Delivery Method Room Air 11/17/24 12:49 BMI result Body Mass Index 18.0 Const General: alert Neck Neck: Yes normal visual inspection, Yes full ROM and Yes no lymphadenopathy Chest Chest palpation & inspection: normal inspection of the chest Resp Auscultation: diminished lung sounds Cardio Rate: regular rate Rhythm: regular rhythm Heart sounds: S1 normal heart sound present and Abnormal heart opening sounds loud S2 GI Palpation (GI): Soft to palpation and nontender Auscultation: normal bowel sounds Skin General skin exam: rashes and/or lesions noted Assessment & Plan Assessment & Plan (1) Dyspnea: Code(s): R06.00 - Dyspnea, unspecified Category: Medical Qualifiers: Dyspnea type: dyspnea on exertion Qualified Code(s): R06.09 - Other forms of dyspnea (2) Pulmonary nodules: Code(s): R91.8 - Other nonspecific abnormal finding of lung field Category: Medical (3) GERD (gastroesophageal reflux disease): Code(s): K21.9 - Gastro-esophageal reflux disease without esophagitis Category: Medical Qualifiers: Esophagitis bleeding: without hemorrhage Esophagitis presence: with esophagitis Qualified Code(s): K21.00 - Gastro-esophageal reflux disease with esophagitis, without bleeding Plan Continue reflux diet needs to sleep elevated stop Azithromycin start Incruse daily Mucinex ok to use Follow-up in 6 months Medications: New umeclidinium 62.5 mcg/actuation (Incruse Ellipta) 1 inh inhalation DAILY 30 ea 11RF 30 days J45.909 - Unspecified asthma, uncomplicated Coding Level of Care Code Est Pt Level 4 (78786) Complex EM visit Add On G2211 Diagnoses Dyspnea on exertion R06.09 Dyspnea type: dyspnea on exertion Pulmonary nodules R91.8 Gastroesophageal reflux disease with esophagitis without hemorrhage K21.00 Esophagitis bleeding: without hemorrhage Esophagitis presence: with esophagitis Time Spent (min) 17
== END 2024-11-17 13:17 | disposition home or self-care (01) ==
LOC: HO.HPS 12:12
PROVIDERS: PCP Internal Medicine; Visit Provider Hospitalist
DX: R06.09 Other forms of dyspnea (principal); R91.8 Other nonspecific abnormal finding of lung field; K21.00 Gastro-esophageal reflux disease with esophagitis, without bleeding
CPT/HCPCS: 99214; G2211